=== PATIENT | male | born 1955 | race Caucasian/White ===

== ENCOUNTER 2019-08-20 05:04 | Observation (INO) ==
[2019-08-20] MEDS ORDERED: Naloxone 0.4 MG/ML INJ IVP PRN (07:38)
[2019-08-20] MEDS: *HR* Heparin 5,000 UNIT/ML VIAL SQ SCH ×2 (13:33→21:17)
[2019-08-20] MEDS ORDERED: Acetaminophen/Aspirin/Caffeine TABLET PO PRN (17:10)
[2019-08-20] MEDS ORDERED: traZODone 50 MG TABLET PO SCH (21:00)
[2019-08-21] MEDS: *HR* Heparin 5,000 UNIT/ML VIAL SQ SCH ×2 (05:37→13:45)
[2019-08-21] MEDS ORDERED: Regadenoson 0.4 MG/5 ML SYRINGE IVP ONE (06:26)
[2019-08-21] MEDS ORDERED: Aspirin Enteric Coated 81 MG Tablet PO SCH (09:00)
[2019-08-21 10:44] LABS: BUN/Creatinine Ratio 18 (6-26); Blood Urea Nitrogen 16 mg/dL (8-23); Calcium 9.1 mg/dL (8.6-10.3); Carbon Dioxide 25 mEq/L (23-29); Chloride 106 mEq/L (98-107); Chol/HDL Ratio 3.6 (0-4.9); Cholesterol 133 mg/dL (< 200); Glucose 109 mg/dL (70-105); HDL Cholesterol 37 mg/dL (40-59); LDL Cholesterol,Calculated 52 mg/dL (0-99); Osmolality,Calculated 292 (280-300); Potassium 3.8 mEq/L (3.5-5.1); Sodium 140 mEq/L (136-145); Triglycerides 218 mg/dL (< 150); eGFR For African Americans > 60 (> 60); eGFR For Non-African Americans > 60 (> 60)
[2019-08-21 11:55] LABS: Estimated Average Glucose 120 mg/dl
[2019-08-21 15:18] VITALS: BP 137/80
[2019-08-21] MEDS ORDERED: Isosorbide MONOnitrate (24 HR) 30 MG TAB.ER.24H PO SCH (15:20)
== END 2019-08-21 16:59 | disposition home or self-care (01) ==
LOC: 2ANU → SUATTDRO 06:29
PROVIDERS: ADMIT Internal Medicine; ATTEND Internal Medicine